=== PATIENT | male | born 1995 | race Caucasian/White ===

== ENCOUNTER 2017-08-27 23:25 | Emergency (ER) | payer OTHER | END 2017-08-28 01:42 | disposition home or self-care (01) | LOC: M ED 23:25 | DX: T88.1XXA Other complications following immunization, not elsewhere classified, initial encounter (principal); Y92.9 Unspecified place or not applicable; Y93.9 Activity, unspecified; Z79.899 Other long term (current) drug therapy | CPT/HCPCS: 99282 ==